=== PATIENT | male | born 1950 | race Caucasian/White ===

== ENCOUNTER → 2018-01-08 | Outpatient (CLI) | payer MEDICARE | END | disposition home or self-care (01) | LOC: CVU 07:52 | PROVIDERS: ATTEND Nurse Practitioner Primary Care | DX: I10 Essential (primary) hypertension (principal); R53.83 Other fatigue; R23.9 Unspecified skin changes | CPT/HCPCS: 93306 ==

== ENCOUNTER → 2018-02-11 | Outpatient (CLI) | payer MEDICARE | END | disposition home or self-care (01) | LOC: CFH 14:31 | PROVIDERS: ATTEND Nurse Practitioner Primary Care | DX: R74.8 Abnormal levels of other serum enzymes (principal); R97.20 Elevated prostate specific antigen [PSA]; R01.1 Cardiac murmur, unspecified; R73.01 Impaired fasting glucose; R79.9 Abnormal finding of blood chemistry, unspecified; I10 Essential (primary) hypertension; E83.110 Hereditary hemochromatosis; B19.20 Unspecified viral hepatitis C without hepatic coma | CPT/HCPCS: 74150 ==

== ENCOUNTER 2018-08-09 07:05 | Inpatient (IN) | payer MEDICARE ==
[~2018-08-09] VITALS: Ht 175.3 cm; Wt 101.4 kg
[~2018-08-09 07:05] MED LIST: ENOX40SY4 SQ; TRAM-47 PO
[2018-08-09] MEDS ORDERED: KETOROLAC 30 MG/1 ML ONE (07:56)
[2018-08-09 08:00] LABS: ALANINE AMINOTRANSFERASE 24 U/L (12-78); ALBUMIN 2.8 g/dL (3.4-5.0); ANION GAP 11 mmol/L (5-15); CALCIUM 8.9 mg/dL (8.5-10.1); CHLORIDE 100 mmol/L (98-107)
[2018-08-09] MEDS ORDERED: KETOROLAC 30 MG/1 ML IVPush ONE (08:00)
[2018-08-09] MEDS ORDERED: SODIUM CHLORIDE FLUSH 10ML SYR IVF ONE (08:00)
[2018-08-09 08:04] LABS: ALKALINE PHOSPHATASE 119 U/L (45-117); BILIRUBIN,TOTAL 1.1 mg/dL (0.2-1.0); CREATININE 0.88 mg/dL (0.7-1.3); TROPONIN I < 0.015 ng/mL (0.000-0.045)
[2018-08-09 08:10] LABS: MEAN CORPUSCULAR HEMOGLOBIN 32.8 pg (27.5-34.5); MEAN CORPUSCULAR HGB CONC 34.4 g/dL (33.2-36.2); MEAN CORPUSCULAR VOLUME 95.3 fL (81-97); MEAN PLATELET VOLUME 9.6 fL (7.4-10.4); PLATELET COUNT 143 x10^3/uL (130-400); RED BLOOD COUNT 4.68 x10^6/uL (4.38-5.82)
[2018-08-09 08:35] LABS: MD YES
[2018-08-09 08:36] LABS: BAND#(MANUAL) 1.06 x10^3/uL; BANDS%(MANUAL) 6 % (0-7); LYMPH#(MANUAL) 0.89 x10^3/uL (1-3.4); LYMPHS% (MANUAL) 5 % (22-44); MONOS#(MANUAL) 3.36 x10^3/uL (0.3-2.7); MONOS% (MANUAL) 19 % (2-9); SEG#(MANUAL) 12.39 x10^3/uL (1.8-6.8); SEGS% (MANUAL) 70 % (42-75)
[2018-08-09 08:37] LABS: PMNS WITH VACUOLES 1+; TOXIC GRAN 1+
[2018-08-09 08:38] LABS: <PLATELET ESTIMATE> ADEQUATE; <PLT MORPHOLOGY> NORMAL PLT MORPH; <RBC MORPHOLOGY> NORMAL
[2018-08-09] MEDS ORDERED: LISI-167 PO (09:40)
[2018-08-09] MEDS ORDERED: CEFTRIAXONE PMX 1GM/50ML 50 ML IV ONE (10:00)
[2018-08-09] MEDS ORDERED: CEFTRIAXONE PMX 1GM/50ML 50 ML ONE (10:09)
[2018-08-09 10:41] VITALS: BP 168/80
[2018-08-09] MEDS ORDERED: AZITHROMYCIN 500 MG in SODIUM CHLORIDE 0.9% 250 ML IV ONE (11:00)
[2018-08-09] MEDS ORDERED: CYCLOBENZAPRINE 10 MG TABLET PO PRN (11:30)
[2018-08-09] MEDS ORDERED: GUAIFENESIN/DM 200-20MG, 10ML UDC PO PRN (11:30)
[2018-08-09] MEDS ORDERED: ACETAMINOPHEN 325 MG TABLET PO PRN (11:30)
[2018-08-09] MEDS ORDERED: ONDANSETRON 2MG/ML, 2ML IVPB PRN (11:30)
[2018-08-09] MEDS ORDERED: PHARMACY MAY ADJ FOR RENAL FX MC PRN (11:30)
[2018-08-09] MEDS ORDERED: KETOROLAC 30 MG/1 ML IV PRN (11:30)
[2018-08-09] MEDS ORDERED: AZITHROMYCIN 500 MG in SODIUM CHLORIDE 0.9% 250 ML IV SCH (12:00)
[2018-08-09] MEDS: HYDROcodone/APAP 5/325 TABLET PO PRN ×3 (12:11→21:37)
[2018-08-09] MEDS: ENOXAPARIN 40 MG/0.4 ML SQ SCH (12:12)
[2018-08-09 14:50] VITALS: BP 154/74
[2018-08-09 19:07] VITALS: BP 151/70
[2018-08-10 00:54] VITALS: BP 143/79
[2018-08-10] MEDS: HYDROcodone/APAP 5/325 TABLET PO PRN ×4 (02:50→21:21)
[2018-08-10 04:35] LABS: MEAN CORPUSCULAR HEMOGLOBIN 32.2 pg (27.5-34.5); MEAN CORPUSCULAR HGB CONC 33.8 g/dL (33.2-36.2); MEAN CORPUSCULAR VOLUME 95.1 fL (81-97); MEAN PLATELET VOLUME 9.8 fL (7.4-10.4); PLATELET COUNT 150 x10^3/uL (130-400); RED BLOOD COUNT 4.69 x10^6/uL (4.38-5.82); RED CELL DISTRIBUTION WIDTH 15.3 % (9.4-14.8)
[2018-08-10 05:55] LABS: MD YES
[2018-08-10 06:13] LABS: <PLATELET ESTIMATE> ADEQUATE; <PLT MORPHOLOGY> NORMAL PLT MORPH; <RBC MORPHOLOGY> NORMAL; EOS#(MANUAL) 0.32 x10^3/uL (0.0-0.4); EOS% (MANUAL) 2 % (1-7); LYMPH#(MANUAL) 1.26 x10^3/uL (1-3.4); LYMPHS% (MANUAL) 8 % (22-44); MONOS#(MANUAL) 0.32 x10^3/uL (0.3-2.7); MONOS% (MANUAL) 2 % (2-9); SEGS% (MANUAL) 88 % (42-75)
[2018-08-10 07:51] VITALS: BP 160/89
[2018-08-10] MEDS: LISINOPRIL 30 MG HOMEMEDPO SCH (09:00)
[2018-08-10] MEDS: ENOXAPARIN 40 MG/0.4 ML SQ SCH (09:42)
[2018-08-10] MEDS ORDERED: CEFTRIAXONE 1,000 MG in SODIUM CHLORIDE 0.9% 50 ML IVPB SCH (10:00)
[2018-08-10] MEDS: AZITHROMYCIN 500 MG TABLET PO SCH (12:11)
[2018-08-10] MEDS: CEFTRIAXONE PMX 1GM/50ML 50 ML IVPB SCH (12:11)
[2018-08-10 12:36] VITALS: BP 138/62
[2018-08-10] MEDS ORDERED: CELE200C PO (15:50)
[2018-08-10] MEDS ORDERED: CEFD300C37 PO (15:50)
[2018-08-10] MEDS ORDERED: DICL100G19 TP (15:50)
[2018-08-10 19:32] VITALS: BP 122/89
[2018-08-11] VITALS (8 sets, daily range): BP systolic 148–203; BP diastolic 76–98
[2018-08-11] MEDS: HYDROcodone/APAP 5/325 TABLET PO PRN ×2 (05:15→15:00)
[2018-08-11] MEDS ORDERED: OMNIPAQUE 350 MG/ML, 75ML BOTTLE ONE (09:05)
[2018-08-11] MEDS: AZITHROMYCIN 500 MG TABLET PO SCH (09:32)
[2018-08-11] MEDS: CEFTRIAXONE PMX 1GM/50ML 50 ML IVPB SCH (09:32)
[2018-08-11] MEDS: LISINOPRIL 30 MG HOMEMEDPO SCH (09:32)
[2018-08-11] MEDS ORDERED: BENZ100C PO (10:20)
[2018-08-11 11:01] LABS: ALBUMIN 2.3 g/dL (3.4-5.0)
[2018-08-11 11:02] LABS: TOTAL PROTEIN 6.4 g/dL (6.4-8.2)
[2018-08-11] MEDS: ENOXAPARIN 40 MG/0.4 ML SQ SCH (11:30)
[2018-08-11] MEDS ORDERED: LIDOCAINE-MPF 1%, 5ML ONE (14:16)
== END 2018-08-11 17:11 | disposition still patient (30) | DRG 871 ==
LOC: ED 09:12 → 3NW 09:56
PROVIDERS: ADMIT Internal Medicine; ATTEND Internal Medicine
PROC: 0W9B3ZZ Drainage of Left Pleural Cavity, Percutaneous Approach (ICD-10-PCS; principal; 2018-08-11)
DX: A41.9 Sepsis, unspecified organism (principal); J15.9 Unspecified bacterial pneumonia; E87.1 Hypo-osmolality and hyponatremia; J90 Pleural effusion, not elsewhere classified; J91.8 Pleural effusion in other conditions classified elsewhere; E44.1 Mild protein-calorie malnutrition; E86.1 Hypovolemia; F17.200 Nicotine dependence, unspecified, uncomplicated; I10 Essential (primary) hypertension; Z79.899 Other long term (current) drug therapy; Z80.0 Family history of malignant neoplasm of digestive organs; Z82.0 Family history of epilepsy and other diseases of the nervous system; Z85.038 Personal history of other malignant neoplasm of large intestine; Z90.49 Acquired absence of other specified parts of digestive tract
CPT/HCPCS: 32555; 36415; 71045; 71260; 71275; 80053; 82040; 82945; 83615; 84155; 84157; 84484; 85025; 85379; 87015; 87040; 87070; 87116; 87205; 87206; 89051; 93005; 96365; 96375; G0378; J0456; J0696; J1650; J1885; Q9967; J7050

== ENCOUNTER → 2018-08-13 | Outpatient (CLI) | payer MEDICARE ==
[~2018-08-13] MED LIST changes: +BENZ100C PO; +CEFD300C37 PO; +CELE200C PO; +DICL100G19 TP; +LISI-167 PO
== END | disposition home or self-care (01) ==
LOC: CFH 11:47
PROVIDERS: ATTEND Nurse Practitioner Primary Care
DX: J90 Pleural effusion, not elsewhere classified (principal); J98.11 Atelectasis; J18.9 Pneumonia, unspecified organism
CPT/HCPCS: 71046

== ENCOUNTER → 2018-08-28 | Outpatient (CLI) | payer MEDICARE | END | disposition home or self-care (01) | LOC: CFH 10:52 | PROVIDERS: ATTEND Nurse Practitioner Primary Care | DX: J90 Pleural effusion, not elsewhere classified (principal); J98.11 Atelectasis; J84.10 Pulmonary fibrosis, unspecified; I10 Essential (primary) hypertension | CPT/HCPCS: 71046 ==

== ENCOUNTER → 2018-09-18 | Outpatient (CLI) | payer MEDICARE | END | disposition home or self-care (01) | LOC: CFH 08:11 | PROVIDERS: ATTEND Internal Medicine | DX: B19.20 Unspecified viral hepatitis C without hepatic coma (principal); R76.8 Other specified abnormal immunological findings in serum | CPT/HCPCS: 76700 ==

== ENCOUNTER → 2021-04-01 | Outpatient (CLI) | payer MEDICARE | END | disposition home or self-care (01) | LOC: CFH 10:08 | PROVIDERS: ATTEND Internal Medicine | DX: C61 Malignant neoplasm of prostate (principal); C18.9 Malignant neoplasm of colon, unspecified; Z71.84 Encounter for health counseling related to travel; Z23 Encounter for immunization; I12.9 Hypertensive chronic kidney disease with stage 1 through stage 4 chronic kidney disease, or unspecified chronic kidney disease; Z00.00 Encounter for general adult medical examination without abnormal findings; N18.9 Chronic kidney disease, unspecified; E83.52 Hypercalcemia; E87.1 Hypo-osmolality and hyponatremia; E11.65 Type 2 diabetes mellitus with hyperglycemia; B19.20 Unspecified viral hepatitis C without hepatic coma; R01.1 Cardiac murmur, unspecified; E83.10 Disorder of iron metabolism, unspecified; E78.2 Mixed hyperlipidemia; M10.9 Gout, unspecified; E11.22 Type 2 diabetes mellitus with diabetic chronic kidney disease; J98.11 Atelectasis; Z68.36 Body mass index [BMI] 36.0-36.9, adult | CPT/HCPCS: 71046 ==